=== PATIENT | female | born 1990 | race Caucasian/White ===

== ENCOUNTER 2022-04-29 10:20 | Inpatient (IN) ==
[2022-04-29] MEDS ORDERED: METHYLERGONOVINE 0.2 MG/1 ML AMP IM PRN (11:14)
[2022-04-29] MEDS ORDERED: FAMOTIDINE 20 MG/2 ML VIAL IV ONE (11:14)
[2022-04-29] MEDS ORDERED: OXYTOCIN/LR 20 UNIT/1,000 ML BAG IV ONE ×2 (11:14→17:44)
[2022-04-29] MEDS ORDERED: ceFAZolin 2,000 MG/50 ML DUPLEX IV ONE (11:14)
[2022-04-29] MEDS ORDERED: miSOPROStoL 200 MCG TABLET RECTAL PRN (11:14)
[2022-04-29] MEDS ORDERED: TRANEXAMIC ACID 1,000 MG in SODIUM CHLORIDE 0.9% 100 ML IV PRN (11:14)
[2022-04-29] MEDS ORDERED: CITRIC ACID/SODIUM CITRATE 30 ML UDCUP PO ONE (11:14)
[2022-04-29] MEDS ORDERED: CARBOPROST TROMETHAMINE 250 MCG/ML AMP IM PRN (11:14)
[2022-04-29] MEDS ORDERED: OXYTOCIN/LR 30 UNIT/1,000 ML BAG IV ONE (11:18)
[2022-04-29] MEDS ORDERED: OXYTOCIN 10 UNIT/ML VIAL IM ONE (11:18)
[2022-04-29] MEDS ORDERED: ONDANSETRON 4 MG/2 ML VIAL ONE (11:46)
[2022-04-29] MEDS ORDERED: BUPIVACAINE SPINAL 0.75% 2 ML AMP SPINAL ONE (11:46)
[2022-04-29] MEDS ORDERED: PHENYLEPHRINE 1 MG/10 ML SYRINGE IV ONE ×2 (11:46→16:56)
[2022-04-29] MEDS ORDERED: buprenorphine HCL 0.3 MG/ML VIAL ONE (11:47)
[2022-04-29 12:07] LABS: Basophils % 0.3 % (0.0-0.8); Eosinophils % 0.4 % (0.00-10.9); Hematocrit 33.7 VOL% (35.7-47.0); Hemoglobin 11.2 GM/DL (12.0-16.0); Immature Granulocytes % 0.5 %; Immature Granulocytes Absolute 0.06 #; Lymphocytes # 1.5 10*3/uL (1.4-4.0); Mean Corpuscular HGB Conc 33.2 GM/DL (32-36); Mean Corpuscular Volume 90.8 FL (87-102); Mean Platelet Volume 9.7 FL (9.6-12.0); Monocytes # 0.6 10*3/uL (0.11-0.8); Monocytes % 5.4 % (1.7-12.7); Neutrophils % 80.4 % (38.7-73.9); Platelet Count 194 T/CUMM (130-400); Red Blood Count 3.71 MC/CUMM (3.8-5.5); Red Cell Distribution Width 12.5 % (9.3-17.3); White Blood Count 11.2 T/CUMM (4-12)
[2022-04-29 13:02] LABS: Albumin 2.5 G/DL (3.4-5.0); Bilirubin,Total 0.6 MG/DL (0.20-1.00); Calcium 9.4 MG/DL (8.5-10.1); Osmolality,Calculated 273.7 MOS/KG (273-304); Potassium 4.2 MMOL/L (3.5-5.1); Total Protein 6.6 G/DL (6.4-8.2)
[2022-04-29] MEDS: LACTATED RINGERS 1,000 ML IV SCH ×3 (15:20→19:00)
[2022-04-29] MEDS ORDERED: TRANEXAMIC ACID 1,000 MG/10 ML VIAL ONE (15:39)
[2022-04-29] MEDS ORDERED: miSOPROStoL 200 MCG TABLET ONE (15:39)
[2022-04-29] MEDS ORDERED: SODIUM CHLORIDE 0.9% 0 ML IV ONE (15:40)
[2022-04-29] MEDS ORDERED: METHYLERGONOVINE 0.2 MG/1 ML AMP ONE (15:40)
[2022-04-29] MEDS ORDERED: CARBOPROST TROMETHAMINE 250 MCG/ML AMP IM ONE (15:40)
[2022-04-29] MEDS ORDERED: ACETAMINOPHEN INJ 1,000 MG/100 ML VIAL IV ONE (17:04)
[2022-04-29 17:15] LABS: Cord Arterial Blood HCO3 21.1 MMOL/L
[2022-04-29 17:19] LABS: Cord Venous Blood HCO3 22.1 MMOL/L; Cord Venous Blood PCO2 44.1 MMHG; Cord Venous Blood PO2 30.9
[2022-04-29] MEDS ORDERED: RHO(D) IMMUNE GLOBULIN 300 MCG SYRINGE IM ONE (17:44)
[2022-04-29] MEDS ORDERED: ONDANSETRON 4 MG/2 ML VIAL IV PRN (17:44)
[2022-04-29] MEDS ORDERED: ACETAMINOPHEN 325 MG TABLET PO PRN (17:44)
[2022-04-29] MEDS ORDERED: KETOROLAC 30 MG/1 ML VIAL ONE (17:51)
[2022-04-29] MEDS ORDERED: LACTATED RINGERS 1,000 ML IV SCH (18:00)
[2022-04-29] MEDS ORDERED: MEPERIDINE 50 MG/1 ML VIAL IV PRN (18:17)
[2022-04-29 18:36] LABS: Bilirubin,Urine Negative (Negative); Blood, Urine Large mg/dL (Negative); Glucose,Urine (UA) Negative (Negative); Ketones,Urine Trace mg/dL (Negative); Nitrite,Urine Negative (Negative); Protein,Urine 100 mg/dL (Negative); Urine Appearance Cloudy (Clear)
[2022-04-29 18:37] LABS: Urine Color Light Orange (Yellow); Urine Urobilinogen 0.2 eU/dL (<2.0)
[2022-04-29 18:44] LABS: RBC,Urine 1245 /HPF (0-4); Squamous Epithelial Cell,Urine Occasional /HPF (0-10)
[2022-04-29 19:11] LABS: Barbiturates Screen,Urine Negative (Negative); Benzodiazepines Screen,Urine Negative (Negative); Cannabinoid Screen,Urine Negative (Negative); Opiate Screen,Urine Negative (Negative); Phencyclidine Screen,Urine Negative (Negative)
[2022-04-29] MEDS: DOCUSATE SODIUM 100 MG CAPSULE PO SCH (22:11)
[2022-04-29] MEDS: KETOROLAC 30 MG/1 ML VIAL IV SCH (23:15)
[2022-04-29] MEDS ORDERED: diphenhydrAMINE 50 MG/1 ML VIAL IV PRN (23:18)
[2022-04-30 01:21] LABS: Basophils % 0.2 % (0.0-0.8); Eosinophils # 0.2 10*3/uL (0.0-0.87); Eosinophils % 1.2 % (0.00-10.9); Hematocrit 30.4 VOL% (35.7-47.0); Hemoglobin 9.9 GM/DL (12.0-16.0); Immature Granulocytes % 0.3 %; Immature Granulocytes Absolute 0.04 #; Lymphocytes % 16.1 % (21.3-54.2); Mean Corpuscular HGB Conc 32.6 GM/DL (32-36); Mean Corpuscular Volume 90.7 FL (87-102); Mean Platelet Volume 9.7 FL (9.6-12.0); Monocytes % 7.9 % (1.7-12.7); Neutrophils % 74.3 % (38.7-73.9); Platelet Count 190 T/CUMM (130-400); Red Blood Count 3.35 MC/CUMM (3.8-5.5); Red Cell Distribution Width 12.5 % (9.3-17.3); White Blood Count 12.6 T/CUMM (4-12)
[2022-04-30] MEDS: KETOROLAC 30 MG/1 ML VIAL IV SCH ×2 (05:38→11:59)
[2022-04-30 07:44] LABS: Basophils % 0.3 % (0.0-0.8); Eosinophils # 0.1 10*3/uL (0.0-0.87); Eosinophils % 1.1 % (0.00-10.9); Hematocrit 31.2 VOL% (35.7-47.0); Hemoglobin 10.3 GM/DL (12.0-16.0); Immature Granulocytes % 0.5 %; Immature Granulocytes Absolute 0.06 #; Lymphocytes # 1.9 10*3/uL (1.4-4.0); Mean Corpuscular Volume 90.2 FL (87-102); Mean Platelet Volume 9.8 FL (9.6-12.0); Monocytes % 8.2 % (1.7-12.7); Neutrophils % 74.9 % (38.7-73.9); Platelet Count 200 T/CUMM (130-400); Red Blood Count 3.46 MC/CUMM (3.8-5.5); Red Cell Distribution Width 12.7 % (9.3-17.3); White Blood Count 12.6 T/CUMM (4-12)
[2022-04-30] MEDS: METOCLOPRAMIDE 10 MG TABLET PO SCH ×2 (09:04→18:14)
[2022-04-30] MEDS: MAGNESIUM HYDROXIDE SUSP 30 ML UDCUP PO PRN ×2 (09:04→20:10)
[2022-04-30] MEDS: DOCUSATE SODIUM 100 MG CAPSULE PO SCH ×2 (09:04→20:11)
[2022-04-30] MEDS: MULTIVITAMIN (PRENATAL) TABLET PO SCH (09:04)
[2022-04-30] MEDS: SIMETHICONE CHEW 80 MG TABLET PO PRN (09:04)
[2022-04-30] MEDS: IBUPROFEN 800 MG TABLET PO PRN (20:11)
[2022-04-30] MEDS ORDERED: diphenhydrAMINE CAP 25 MG CAPSULE PO PRN (23:16)
[2022-05-01] MEDS: METOCLOPRAMIDE 10 MG TABLET PO SCH (03:02)
[2022-05-01] MEDS: IBUPROFEN 800 MG TABLET PO PRN (04:03)
[2022-05-01 07:47] VITALS: BP 103/50
[2022-05-01] MEDS: SIMETHICONE CHEW 80 MG TABLET PO PRN (08:53)
[2022-05-01] MEDS: MULTIVITAMIN (PRENATAL) TABLET PO SCH (08:54)
[2022-05-01] MEDS: DOCUSATE SODIUM 100 MG CAPSULE PO SCH (08:54)
[2022-05-01] MEDS ORDERED: DIPH/TET/ACEL PERT BOOSTER VACCINE 0.5 ML VIAL IM ONE (11:34)
== END 2022-05-01 11:50 | disposition home or self-care (01) | DRG 540 ==
LOC: N.LD 10:20 → N.OB 22:00
PROVIDERS: ADMIT Obstetrics & Gynecology; ATTEND Obstetrics & Gynecology
PROC: LDCSECT (ICD-10-PCS; 2022-04-29 16:00)